=== PATIENT | male | born 1990 | race African-American/Black ===

== ENCOUNTER 2024-08-25 16:12 | Emergency (ER) | payer SELFPAY ==
[2024-08-25] MEDS: Diphtheria,Pertussis(Acell),Tetanus Vaccine 0.5 ML Syringe IM ONE (17:58)
== END 2024-08-25 18:08 | disposition home or self-care (01) ==
LOC: MW.ED 16:12
DX: S67.197A Crushing injury of left little finger, initial encounter (principal); Z23 Encounter for immunization; Z75.3 Unavailability and inaccessibility of health-care facilities; W23.0XXA Caught, crushed, jammed, or pinched between moving objects, initial encounter
CPT/HCPCS: 12001; 12041; 73130-26-LT; 73130-LT; 90471; 90715; 99283; 99283-25